=== PATIENT | female | born 1950 | race Caucasian/White ===

== ENCOUNTER → 2024-12-06 | Outpatient (CLI) | payer MEDICARE | LOC: LAB SHORT 12-06 16:35 → LAB 16:35 → LAB SHORT 16:35 | DX: R30.0 Dysuria (principal) | CPT/HCPCS: 87086 ==

== ENCOUNTER → 2025-01-05 | Outpatient (CLI) | payer MEDICARE | LOC: LAB 07:51 → LAB SHORT 07:51 | DX: L57.0 Actinic keratosis (principal) | CPT/HCPCS: 88305 ==

== ENCOUNTER → 2025-10-24 | Outpatient (CLI) | payer MEDICARE | LOC: LAB SHORT 16:00 → LAB 16:00 | DX: N39.0 Urinary tract infection, site not specified (principal) | CPT/HCPCS: 87077; 87086; 87186 ==

== ENCOUNTER → 2025-10-25 | Outpatient (CLI) | payer MEDICARE | END | disposition home or self-care (01) | LOC: LAB SHORT 17:03 → LAB 17:03 | DX: R39.9 Unspecified symptoms and signs involving the genitourinary system (principal) | CPT/HCPCS: 87086 ==